=== PATIENT | male | born 1955 | race African-American/Black ===

== ENCOUNTER 2016-11-06 00:37 | Inpatient (IN) | payer OTHER ==
[~2016-11-06] VITALS: Ht 172.7 cm; Wt 54.4 kg
[~2016-11-06 00:37] MED LIST: AMLO10TA80 PO; MONT10TA24 PO; PANT40TA4 PO
[2016-11-06] MEDS ORDERED: FAMOTIDINE 20MG/2ML VIAL IV STA (01:22)
[2016-11-06] MEDS ORDERED: SODIUM CHLORIDE 0.9% 1,000 ML IV ONE (01:22)
[2016-11-06] MEDS ORDERED: MORPHINE SULFATE 4 MG/ML CPJ (NOT FOR IM USE) IV STA (01:22)
[2016-11-06] MEDS ORDERED: ONDANSETRON HCL 4MG/2ML VIAL IV STA (01:22)
[2016-11-06 01:53] LABS: BASOPHILS % 0.3 % (0.0-2.0); EOSINOPHILS % 1.5 % (0.0-5.0); HEMATOCRIT. 34.7 % (42.0-52.0); HEMOGLOBIN. 11.7 g/dL (14.0-18.0); LYMPHOCYTES % 21.2 % (20.0-50.0); MEAN CORPUSCULAR HEMOGLOBIN 30.2 pg (28.0-32.0); MEAN CORPUSCULAR VOLUME 89.9 fL (80.0-94.0); MEAN PLATELET VOLUME 6.7 fl (7.4-10.4); MONOCYTES % 6.2 % (2.0-8.0); NEUTROPHILS % 70.8 % (40.0-76.0); PLATELET 330 x1000/uL (130-400); RED BLOOD CELL COUNT 3.86 mill/uL (4.7-6.1); RED CELL DISTRIBUTION WIDTH 14.3 % (11.6-14.6)
[2016-11-06 02:03] LABS: CLARITY URINE CLOUDY (CLEAR); COLOR URINE YELLOW (YELLOW); GLUCOSE URINE NEGATIVE (NEGATIVE); KETONES URINE NEGATIVE (NEGATIVE); LEUKOCYTE ESTERASE URINE NEGATIVE (NEGATIVE); NITRITE URINE NEGATIVE (NEGATIVE); OCCULT BLOOD URINE NEGATIVE (NEGATIVE); PROTEIN URINE NEGATIVE (NEGATIVE); SPECIFIC GRAVITY URINE 1.015 (1.005-1.030); UROBILINOGEN URINE 0.2 E.U./dL (0.2-1.0)
[2016-11-06 02:04] LABS: CHLORIDE 104 mEq/L (98-107)
[2016-11-06 02:13] LABS: CARBON DIOXIDE 27 mEq/L (21-32); ETHANOL BLOOD < 10 mg/dL
[2016-11-06 02:39] LABS: *AMPHETAMINES SCREEN URINE PRESUMTIVE POSITIVE (NEGATIVE); *BARBITURATES SCREEN URINE NEGATIVE (NEGATIVE); *BENZODIAZEPINES SCREEN URINE NEGATIVE (NEGATIVE); *COCAINE SCREEN URINE NEGATIVE (NEGATIVE); CANNABINOID URINE SCREEN NEGATIVE (NEGATIVE); METHADONE URINE SCREEN NEGATIVE (NEGATIVE); OPIATES URINE SCREEN NEGATIVE (NEGATIVE); PHENCYCLIDINE URINE SCREEN NEGATIVE (NEGATIVE)
[2016-11-06 08:00] VITALS: BP 147/95
[2016-11-06] MEDS ORDERED: ONDANSETRON HCL 4MG/2ML VIAL IV PRN (11:15)
[2016-11-06] MEDS ORDERED: ACETAMINOPHEN 325MG TABLET PO PRN (11:15)
[2016-11-06] MEDS ORDERED: CLONIDINE 0.1MG TABLET PO PRN (11:15)
[2016-11-06] MEDS ORDERED: DIPHENHYDRAMINE 50MG/ML VIAL IV PRN (11:15)
[2016-11-06] MEDS ORDERED: HYDROCODONE/ACETAMINOPHEN 5/325MG TABLET PO PRN (11:15)
[2016-11-06] MEDS: SODIUM CHLORIDE 0.9% 1,000 ML IV SCH (11:53)
[2016-11-06] MEDS: PANTOPRAZOLE SODIUM 40 MG/VIAL IV SCH (11:53)
[2016-11-06 12:00] VITALS: BP 139/104
[2016-11-06] MEDS ORDERED: DIPH25CA83 PO (12:38)
[2016-11-06] MEDS ORDERED: BACL-141 PO (12:38)
[2016-11-06] MEDS: MORPHINE SULFATE 4 MG/ML CPJ (NOT FOR IM USE) IV PRN ×2 (15:44→20:23)
[2016-11-06 16:00] VITALS: BP 163/106
[2016-11-06] MEDS ORDERED: DIPHENHYDRAMINE 25MG CAPSULE PO PRN (16:00)
[2016-11-06] MEDS ORDERED: BACLOFEN 10MG TABLET PO SCH (17:00)
[2016-11-06] MEDS ORDERED: BACLOFEN 10MG TABLET PO PRN (17:00)
[2016-11-06 18:31] LABS: CLARITY URINE CLEAR (CLEAR); COLOR URINE YELLOW (YELLOW); GLUCOSE URINE NEGATIVE (NEGATIVE); KETONES URINE NEGATIVE (NEGATIVE); LEUKOCYTE ESTERASE URINE NEGATIVE (NEGATIVE); NITRITE URINE NEGATIVE (NEGATIVE); OCCULT BLOOD URINE NEGATIVE (NEGATIVE); PROTEIN URINE NEGATIVE (NEGATIVE); SPECIFIC GRAVITY URINE 1.012 (1.005-1.030); UROBILINOGEN URINE 0.2 E.U./dL (0.2-1.0)
[2016-11-06 20:00] VITALS: BP 131/89
[2016-11-07] VITALS: BP 126/80
[2016-11-07] MEDS: SODIUM CHLORIDE 0.9% 1,000 ML IV SCH ×2 (00:05→08:06)
[2016-11-07] MEDS: MORPHINE SULFATE 4 MG/ML CPJ (NOT FOR IM USE) IV PRN ×3 (00:41→10:43)
[2016-11-07 04:00] VITALS: BP 136/76
[2016-11-07 06:38] LABS: BASOPHILS % 1.2 % (0.0-2.0); EOSINOPHILS % 2.3 % (0.0-5.0); HEMOGLOBIN. 11.8 g/dL (14.0-18.0); LYMPHOCYTES % 22.9 % (20.0-50.0); MEAN CORPUSCULAR HEMOGLOBIN 30.3 pg (28.0-32.0); MEAN CORPUSCULAR VOLUME 89.8 fL (80.0-94.0); MEAN PLATELET VOLUME 6.8 fl (7.4-10.4); MONOCYTES % 6.7 % (2.0-8.0); NEUTROPHILS % 66.9 % (40.0-76.0); PLATELET 320 x1000/uL (130-400); RED CELL DISTRIBUTION WIDTH 14.5 % (11.6-14.6)
[2016-11-07 07:02] LABS: CARBON DIOXIDE 26 mEq/L (21-32); CHLORIDE 106 mEq/L (98-107)
[2016-11-07 08:00] VITALS: BP 115/73
[2016-11-07] MEDS: PANTOPRAZOLE SODIUM 40 MG/VIAL IV SCH (08:07)
[2016-11-07] MEDS ORDERED: AMLODIPINE 10MG TABLET PO SCH (09:00)
[2016-11-07 12:00] VITALS: BP 115/73
[2016-11-07 13:18] VITALS: BP 120/80
[2016-11-07 16:00] VITALS: BP 143/84
== END 2016-11-07 16:45 | disposition home or self-care (01) | DRG 282 ==
LOC: ER 00:38 → 6EST 04:35 → EDBEDREQ 04:38 → EDBEDREQSVC 04:38 → ENRESERV 04:47
PROVIDERS: ADMIT Internal Medicine; ATTEND Internal Medicine
DX: K85.90 Acute pancreatitis without necrosis or infection, unspecified (principal); E44.1 Mild protein-calorie malnutrition; I10 Essential (primary) hypertension; D64.9 Anemia, unspecified; J44.9 Chronic obstructive pulmonary disease, unspecified; F19.10 Other psychoactive substance abuse, uncomplicated
CPT/HCPCS: 36415; 76705; 80053; 80305; 81001; 81003; 83605; 83690; 85025; 87040; 87086; 96361; 96374; 96375; 99285; C9113; G0482; J2270; J2405; J3490; J7030

== ENCOUNTER 2018-05-29 03:46 | Emergency (ER) | payer OTHER ==
[~2018-05-29] VITALS: Ht 172.7 cm; Wt 73.0 kg
[~2018-05-29 03:46] MED LIST changes: +BACL-141 PO; +DIPH25CA83 PO; -MONT10TA24 PO
[2018-05-29] MEDS ORDERED: SODIUM CHLORIDE 0.9% 1,000 ML IV ONE (04:37)
[2018-05-29] MEDS ORDERED: MORPHINE SULFATE 4 MG/ML CPJ (NOT FOR IM USE) IV STA (04:37)
[2018-05-29] MEDS ORDERED: METOCLOPRAMIDE HCL 10MG/2ML VIAL IV ONE (04:45)
[2018-05-29 04:55] LABS: BASOPHILS % 1.2 % (0.0-2.0); EOSINOPHILS % 2.6 % (0.0-5.0); HEMOGLOBIN. 13.7 g/dL (14.0-18.0); LYMPHOCYTES % 27.2 % (20.0-50.0); MEAN CORPUSCULAR HEMOGLOBIN 30.8 pg (28.0-32.0); MEAN CORPUSCULAR VOLUME 91.7 fL (80.0-94.0); MEAN PLATELET VOLUME 7.1 fl (7.4-10.4); MONOCYTES % 4.6 % (2.0-8.0); NEUTROPHILS % 64.4 % (40.0-76.0); PLATELET 286 x1000/uL (130-400); RED BLOOD CELL COUNT 4.47 mill/uL (4.7-6.1); RED CELL DISTRIBUTION WIDTH 14.5 % (11.6-14.6)
[2018-05-29 05:04] LABS: CHLORIDE 109 mEq/L (98-107)
[2018-05-29 14:45] VITALS: BP 133/99
[2018-05-29] MEDS ORDERED: POTASSIUM CHLORIDE 20MEQ TABLET SR PO NR (14:58)
== END 2018-05-29 15:30 | disposition short-term general hospital (02) ==
LOC: ER 03:46 → EDBEDREQ 06:08 → EDBEDREQTM 06:08 → CANBEDREQ 08:18 → ER 15:30
DX: T18.198A Other foreign object in esophagus causing other injury, initial encounter (principal); R07.89 Other chest pain; F17.200 Nicotine dependence, unspecified, uncomplicated; X58.XXXA Exposure to other specified factors, initial encounter; Y93.89 Activity, other specified; Y92.89 Other specified places as the place of occurrence of the external cause; Y99.8 Other external cause status
CPT/HCPCS: 36415; 71045; 80053; 83605; 83690; 83880; 84484; 85025; 93005; 96361; 96374; 96375; 99285; J2270; J2765; J7030; Z7610

== ENCOUNTER 2024-04-25 11:19 | Emergency (ER) | payer MEDICARE, MEDICAID ==
[~2024-04-25] VITALS: Ht 165.1 cm; Wt 59.0 kg
[~2024-04-25 11:19] MED LIST changes: -PANT40TA4 PO; +PANT40TA51 PO
[2024-04-25 11:23] VITALS: O2SAT 98
[2024-04-25 12:47] LABS: CARBON DIOXIDE 29 mEq/L (21-32); CHLORIDE 106 mEq/L (98-107); POTASSIUM 4.5 mEq/L (3.5-5.1); SODIUM 143 mEq/L (136-145)
[2024-04-25 12:48] LABS: CALCIUM 8.9 mg/dL (8.7-10.4); HEMATOCRIT 53.1 % (42.0-52.0); HEMOGLOBIN 17.6 g/dL (14.0-18.0); MEAN CORPUSCULAR HEMOGLOBIN 33.7 pg (28.0-32.0); MEAN CORPUSCULAR HGB CONC 33.3 g/dL (31.0-37.0); MEAN CORPUSCULAR VOLUME 101.4 fL (80.0-94.0); PLATELET 292 x1000/uL (130-400); RED BLOOD CELL COUNT 5.23 mill/uL (4.7-6.1); RED CELL DISTRIBUTION WIDTH 14.8 % (11.6-14.6)
[2024-04-25 12:51] VITALS: BP 156/98; PULSE 100; RESP 18; TEMP 36.9; O2SAT 98
[2024-04-25 12:53] LABS: CREATININE 0.9 mg/dL (0.6-1.3); GLUCOSE 108 mg/dL (70-105); UREA NITROGEN BLOOD 5 mg/dL (9-23)
[2024-04-25 13:55] LABS: INR 1.1; PROTHROMBIN TIME 11.4 sec (9.6-11.0)
== END 2024-04-25 12:20 | disposition home or self-care (01) ==
LOC: ER 11:19 → EDBEDREQTM 14:27 → EDBEDREQ 14:27
DX: Z76.89 Persons encountering health services in other specified circumstances (principal); I10 Essential (primary) hypertension; J44.9 Chronic obstructive pulmonary disease, unspecified; F10.90 Alcohol use, unspecified, uncomplicated; Z79.899 Other long term (current) drug therapy; Y90.9 Presence of alcohol in blood, level not specified
CPT/HCPCS: 36415; 80048; 85027; 99283